=== PATIENT | female | born 1995 | race African-American/Black ===

== ENCOUNTER 2018-05-03 11:23 | Outpatient (CLI) | payer MEDICAID ==
--- NOTE | 2018-05-03 13:04 | ULT ---
OB ULTRASOUND: HISTORY: Size and dates. FINDINGS: Real-time imaging of the pelvis shows an intrauterine gestational sac, yolk sac, and pole. The heart rate is difficult to obtain. It was in the 90 b.p.m. range. The crown to rump length m easurements are 3.8 cm corresponding to 6 weeks 1 day. Gestational sac is somewhat larger in relatio n to the pole with sac measurements of 25 cm corresponding to 7 weeks 5 days. The left ovary is not visualized. The right ovary is normal in appearance. DOPPLER EVALUATION WITH SPECTRAL ANALYSIS: Normal flow is shown to the right ovary. IMPRESSION: Intrauterine gestational sac and pole with heart activity seen which is somewhat difficult to v isualize due to the small size of the pole. There is also some discrepancy between the size of the pole which is smaller than would be expected for this gestational sac size, but at this ti me there is felt to be viability given what is felt to be a faintly visualized heartbeat. A fo llowup ultrasound would be recommended for assessment. POS: [employer]
== END 2018-05-03 11:24 | disposition home or self-care (01) ==
LOC: BICULT 11:23
PROVIDERS: ATTEND Obstetrics & Gynecology
DX: Z34.01 Encounter for supervision of normal first pregnancy, first trimester (principal); Z3A.01 Less than 8 weeks gestation of pregnancy
CPT/HCPCS: 76856

== ENCOUNTER 2022-05-25 14:55 | Outpatient (CLI) | payer OTHER | END 2022-05-25 14:56 | disposition home or self-care (01) | LOC: BICULT 14:55 | PROVIDERS: ATTEND Family Medicine | DX: O09.893 Supervision of other high risk pregnancies, third trimester (principal); Z3A.36 36 weeks gestation of pregnancy | CPT/HCPCS: 76805 ==